=== PATIENT | female | born 1955 | race Caucasian/White ===

== ENCOUNTER → 2024-11-24 10:52 | Outpatient (REF) | payer OTHER, SELFPAY | LOC: HWEVLT 10:52 | PROVIDERS: ATTENDING PHYSICIAN Radiology Vascular & Interventional Radiology | DX: I83.893 Varicose veins of bilateral lower extremities with other complications (principal) | CPT/HCPCS: 93970 ==

== ENCOUNTER → 2025-02-04 08:14 | Outpatient (REF) | payer OTHER, SELFPAY | LOC: HWEVLT 08:14 | PROVIDERS: ATTENDING PHYSICIAN Radiology Diagnostic Radiology | DX: I83.892 Varicose veins of left lower extremity with other complications (principal) | CPT/HCPCS: 36478; C1769 ==

== ENCOUNTER → 2025-02-16 09:23 | Outpatient (REF) | payer OTHER, SELFPAY | LOC: RCS 09:23 | PROVIDERS: ATTENDING PHYSICIAN Internal Medicine Cardiovascular Disease; FAMILY PHYSICIAN Family Medicine | DX: R00.2 Palpitations (principal) | CPT/HCPCS: 93306 ==

== ENCOUNTER → 2025-02-18 09:13 | Outpatient (REF) | payer OTHER, SELFPAY | LOC: HWEVLT 09:13 | PROVIDERS: ATTENDING PHYSICIAN Radiology Vascular & Interventional Radiology | DX: I83.892 Varicose veins of left lower extremity with other complications (principal) | CPT/HCPCS: 93971 ==

== ENCOUNTER 2025-04-14 08:04 | Day surgery (SDC) | payer OTHER, SELFPAY ==
[2025-03-29 10:21] VITALS: BMI 23.2
[2025-03-29 10:52] LABS: Hematocrit 43.5 % (37.0-47.0); Hemoglobin 14.5 g/dL (12.0-16.0); Mean Corp Hgb Conc. 33.3 g/dL (33.0-37.0); Mean Corpuscular Volume 90.6 fL (81.0-99.0); Nucleated Red Blood Cells % 0 %; Platelet Count 211 10^3/uL (130-400); Red Cell Dist. Width 12.5 % (11.5-14.5)
[2025-03-29 11:05] LABS: ALT (SGPT) 27 U/L (0-35); AST (SGOT) 30 U/L (14-36); Albumin 4.6 g/dl (3.5-5.0); Alkaline Phosphatase 71 U/L (38-126); Blood Urea Nitrogen 20 mg/dl (7-17); Calcium 9.8 mg/dl (8.4-10.2); Carbon Dioxide 30 mmol/L (22-30); Chloride 105 mmol/L (98-107); Estimated Creatinine Clearance 62 ml/min; Glucose 88 mg/dl (70-99); Magnesium 2.1 mg/dl (1.6-2.3); Potassium 4.7 mmol/L (3.5-5.1); Sodium 140 mmol/L (135-145); Total Protein 7.5 g/dl (6.3-8.2); eGFR > 60.00
--- NOTE | 2025-03-29 11:11 | HPS.HSE ---
Family Physician
-
Family Physician: Jarrett Kwong
Chief Complaint
-
Supraventricular tachycardia.
History of Present Illness
The patient is a 69 year old female presenting today for supraventricular tachycardia. She reports significant palpitations and fatigue associated with this diagnosis. She was initially diagnosed with this arrhythmia around the time of
delivery of her second son. Her heart rate reportedly went up to 252 beats per minute. Prior to that diagnosis, she does recall having episodic palpitations, lasting 4-10 minutes, going back to her teenage years. More recently, she has noticed an
increased burden of her symptoms with an abrupt onset and abrupt termination. She does often terminate these episodes by holding her breath or bearing down. Her 7 day CAM monitor in early January 2025 demonstrated 121 episodes of atrial tachycardia,
the longest of which was 21 beats, with average heart rates from 152 to 177 beats per minute. She is interested in pursuing with an EP study and SVT ablation for more definitive arrhythmia management. She denies any current complaints today such as
chest pain, shortness of breath, nausea, vomiting, diarrhea, lightheadedness, dizziness, cough, sore throat, or fever.
Medical History
Past Medical History
Past Medical History: Reports Other
Additional Past Medical History:
1. Supraventricular tachycardia.
2. PACs, asymptomatic.
3. Dyslipidemia.
4. Elevated blood pressure without diagnosis of hypertension.
5. Venous varicosities.
6. Colon polyps.
7. Vertigo.
8. Arthritis.
9. Hemochromatosis.
Past Surgical History: Reports Other
Additional Past Surgical History:
1. Left greater saphenous varicose vein ablation.
2. Cervix conization.
3. Colonoscopy x2.
Social History
Tobacco: Non-smoker
Alcohol: Occasional
Personal:
Living: Other (She lives with her and eldest son in a 1 story home. )
Family History
Family History: Not pertinent
Allergies / Home Medications
Allergy/Medication List:
Home medications:
1. Acetylcysteine 600 mg p.o. daily.
2. Heart health 1 dose p.o. daily.
3. Magnesium complex 1 dose p.o. daily.
4. Magnesium glycinate 1 dose p.o. at bedtime.
5. Methylene blue 1 dose p.o. daily.
6. Pain MD 2 tablet p.o. every 8 hours as needed.
7. Probiotic 1 dose p.o. daily.
8. Spirulina 1 dose p.o. daily.
9. Turmeric 1 dose p.o. daily.
10. Vitamin B complex 1 tablet p.o. daily.
11. Vitamin C 1 dose p.o. daily.
12. Vitamin D3-K2 1 dose p.o. daily.
Allergies: Bactrim.
Review of Systems
-
A 12 point ROS was completed and negative except as noted: Yes
Physical Exam
Vital Signs
Blood pressure 142/94. Heart rate 72. Respirations 18. Pulse ox 94%, increasing to 97% with encouraged deep breathing.
Height 5 feet, 2 inches. Weight 57.5 kg. BMI 23.2.
Physical Exam
General: Well Developed, Well Nourished and No Apparent Distress
HEENT: NormoCephalic, Moist mucous membranes, Atraumatic and PERRLA
Respiratory: Clear
Cardiac: Regular Rhythm
GI: Soft, Non Tender and Non Distended
Musculoskeletal: No Edema and Normal Gait & Station
Skin: Warm and Dry
Neuro: AO x 3 and Nonfocal/grossly intact
Laboratory Results
-
03/29/25 10:39
03/29/25 10:39
Laboratory Results
Total Bilirubin 1.0 mg/dl (0.2-1.3) 03/29/25 10:39
AST 30 U/L (14-36) 03/29/25 10:39
ALT 27 U/L (0-35) 03/29/25 10:39
Alkaline Phosphatase 71 U/L (38-126) 03/29/25 10:39
Magnesium 2.1.
EKG 03/29/2025: Normal sinus rhythm with sinus arrhythmia. Left axis deviation.
Echocardiogram 02/16/2025: Normal left ventricular size, wall thickness, and systolic function. No regional wall motion abnormalities are seen. LV ejection fraction is 58% by Perez's biplane method of discs. Normal diastolic function. Mitral valve
opens normally. Mild prolapse of the posterior mitral leaflet was present. Trace mitral regurgitation is seen.
Impression/Plan
-
IMPRESSION/PLAN:
1. Supraventricular tachycardia: The patient is in need of an EP study and SVT ablation with Dr. Jarrett Antony on 04/14/2025. The benefits and risks of the procedure have been explained to the patient. The patient understands these risks and
wishes to proceed. She is aware to hold all her vitamins and supplements the morning of her procedure.
[2025-04-14] VITALS (10 sets, daily range): BP systolic 99–152; BP diastolic 56–80
--- NOTE | 2025-04-14 14:44 | ITS.CL.ABL ---
[employer] - Ablation
Ablation
Procedure Report:
ELECTROPHYSIOLOGIC STUDY AND POSSIBLE ABLATION
Procedure Date: April 14, 2025
Primary Care Provider: Dr Jarrett Kwong
INDICATION: Supraventricular tachycardia, palpitations
HISTORY:
Symptomatic palpitations determined to be due to SVT on outpatient monitoring.
Medical history additionally includes hemochromatosis.
'Time-out' was called and confirmed.
Presenting rhythm: Sinus rhythm
PROCEDURE:
Ultrasound Guidance with real-time visualization of needle insertion and vessel patency performed by co for femoral venous Vascular Access.
Under real-time US guidance, the needle was advanced with negative pressure into the vein. The needle was seen entering the vessel lumen with a good return of dark red flow, the syringe was removed, non-pulsatile, dark red blood low was noted and
the wire was passed without difficulty, then the needle was removed. US confirmed the wire was in the vein, not going into an artery,
Images were taken and saved for the patient's permanent record. Imaging findings typical femoral venous anatomy. Direct visualization of needle puncture into the femoral vein was observed and recorded.
Multipolar recording catheters were positioned at the HRA, RVA, His bundle and CS (for left atrial recording/mapping).
Mapping, recording and pacing were performed from these sites.
Baseline measurements were recorded and analyzed. Antegrade and retrograde AV katherine Wenckebach CLs were obtained.
Programmed electrical stimulation was performed. Premature extrastimuli were delivered from the HRA, CS and RVA catheters.
Burst atrial pacing was also performed from HRA and LA (CS) sites.
SVT was initiated by the delivery of atrial decremental extrastimuli in the baseline state.
Regular narrow QRS complex tachycardia at CL = 420 ms was induce.
SVT was well-tolerated hemodynamically.
Evidence for typical AV Katherine Reentry as the tachycardia diagnosis included: (1) A concentric midline atrial activation sequence during SVT, (2) ventricular pacing from the RVA showed earliest retrograde atrial activation to be midline, matching
that seen during SVT, (3) Atrial activation during SVT began within the first 70ms of the QRS complex excluding AVRT and making AT unlikely, (4) Initiation of SVT was dependent on a critical AH interval (slow pathway engagement), (5) Ventricular
pacing at a CL 20-30 ms faster than the SVT CL during the SVT demonstrated advancement of the atrial electrogram to the pacing CL and when pacing was terminated, a V-A-H-V pattern with continuation of SVT was observed practically excluding AT as the
SVT mechanism.
SVT could be terminated by burst ventricular pacing.
Radiofrequency Catheter Ablation:
Following determination of the SVT mechanism, isoproterenol was discontinued and baseline conditions were resumed. [employer] 3-D mapping system was used to assist in mapping/targeting ablation site(s.)
The AV katherine slow pathway was mapped and targeted with RF energy using a 4 mm tip non-irrigated mapping/ablation catheter. RF application resulted in nearly immediate accelerated junctional rhythm. At no point was AV delay or heart block
observed. Retrograde junctional - atrial conduction was evaluated during RF application and at no point was VA delay or block observed.
After the last radiofrequency energy delivery, intravenous isoproterenol infusion was begun.
PES stimulation was repeated in the baseline state, on isoproterenol and during the warm down phase after discontinuation of isoproterenol. Single AV katherine echoes could be induced, but no additional echoes and no sustained SVT could be induced. A
marked contrast to the preablation situation.
Programmed electrical stimulation was repeated approximately 30 minutes after the last radiofrequency energy delivery and still no SVT could be induced.
Fluoroscopy time: 5 minutes
COMPLICATIONS: None
SUMMARY:
Programmed electrical stimulation with coronary sinus catheter
Three-dimensional electroanatomic map
Mapping and ablation of SVT
RECOMMENDATIONS:
Outpatient follow-up has been arranged with [facility] July 16, 2025
Copy to:
Dr Jarrett Kwong
== END 2025-04-14 15:00 | disposition home or self-care (01) ==
LOC: CATH 08:04
PROVIDERS: ATTENDING PHYSICIAN Internal Medicine Cardiovascular Disease; FAMILY PHYSICIAN Family Medicine
DX: I47.10 Supraventricular tachycardia, unspecified (principal); E83.110 Hereditary hemochromatosis; E78.5 Hyperlipidemia, unspecified; Z86.0100 Personal history of colon polyps, unspecified; R42 Dizziness and giddiness; Z88.2 Allergy status to sulfonamides; Z88.1 Allergy status to other antibiotic agents; I49.8 Other specified cardiac arrhythmias; M19.90 Unspecified osteoarthritis, unspecified site
CPT/HCPCS: C1730; 36415; 80053; 83735; 85025; 93005; 93653; C1760; C1892; C1893; C1894